=== PATIENT | female | born 1935 | race Two or more races ===

== ENCOUNTER 2018-01-25 02:13 | Inpatient (IN) | payer MEDICARE ==
[~2018-01-25] VITALS: Ht 157.5 cm; Wt 52.3 kg
[2018-01-25 03:30] LABS: CULTURE INDICATED? YES; MICROSCOPIC INDICATED
[2018-01-25] MEDS ORDERED: ONDANSETRON 2MG/ML, 2ML IVPush ONE (03:30)
[2018-01-25] MEDS ORDERED: SODIUM CHLORIDE 0.9% 1,000ML IVBOLUS ONE ×2 (03:30→05:00)
[2018-01-25] MEDS ORDERED: ACETAMINOPHEN 325 MG TABLET PO ONE (03:30)
[2018-01-25] MEDS ORDERED: SODIUM CHLORIDE FLUSH 10ML SYR IVF ONE (03:30)
[2018-01-25 03:32] LABS: BASOPHILS # (AUTO) 0.02 x10^3/uL (0-0.1); BASOPHILS % (AUTO) 0 % (0-1); EOSINOPHILS # (AUTO) 0.24 x10^3/uL (0-0.4); EOSINOPHILS % (AUTO) 2 % (1-7); LYMPHOCYTES % (AUTO) 4 % (22-44); MD NO; MEAN CORPUSCULAR HEMOGLOBIN 30.6 pg (27.0-34.8); MONOCYTES # (AUTO) 0.34 x10^3/uL (0.2-0.8); MONOCYTES % (AUTO) 3 % (2-9); NEUTROPHILS # (AUTO) 9.04 x10^3/uL (1.8-6.8); NEUTROPHILS % (AUTO) 90 % (42-75); PLATELET COUNT 238 x10^3/uL (130-400); RED BLOOD COUNT 4.77 x10^6/uL (3.82-5.3); RED CELL DISTRIBUTION WIDTH 14.9 % (9.6-15.2)
[2018-01-25 03:48] LABS: ALANINE AMINOTRANSFERASE 36 U/L (12-78); ALBUMIN 3.7 g/dL (3.4-5.0); ANION GAP 10 mmol/L (5-15); CALCIUM 9.5 mg/dL (8.5-10.1); CHLORIDE 102 mmol/L (98-107); CREATININE 1.18 mg/dL (0.55-1.02); TROPONIN I < 0.015 ng/mL (0.000-0.045)
[2018-01-25 03:50] LABS: ALKALINE PHOSPHATASE 103 U/L (45-117)
[2018-01-25] MEDS ORDERED: ACETAMINOPHEN 325 MG TABLET ONE (04:02)
[2018-01-25] MEDS ORDERED: ONDANSETRON 2MG/ML, 2ML ONE ×2 (04:02→04:23)
[2018-01-25] MEDS ORDERED: OMNIPAQUE 350 MG/ML, 100ML BOTTLE ONE (04:07)
[2018-01-25] MEDS ORDERED: SODIUM CHLORIDE 0.9% 1,000 ML IV ONE (04:35)
[2018-01-25] MEDS ORDERED: morphine SULFATE 10 MG/ML, 1ML IVPush PRN (05:00)
[2018-01-25] MEDS ORDERED: ENOXAPARIN 40 MG/0.4 ML SQ SCH (05:00)
[2018-01-25] MEDS ORDERED: ONDANSETRON 2MG/ML, 2ML IVPush PRN ×2 (05:00)
[2018-01-25] MEDS ORDERED: ONDANSETRON ODT 4 MG PO PRN (05:00)
[2018-01-25] MEDS: METRONIDAZOLE PMX 500MG/100ML 100 ML IV SCH ×3 (05:00→20:39)
[2018-01-25] MEDS ORDERED: ACETAMINOPHEN 325 MG TABLET PO PRN (05:00)
[2018-01-25] MEDS ORDERED: ATEN50TA41 PO (05:26)
[2018-01-25] MEDS ORDERED: CALC-183 PO (05:26)
[2018-01-25] MEDS ORDERED: VIT1TABL3 PO (05:26)
[2018-01-25] MEDS ORDERED: LOVA40TA2 PO (05:26)
[2018-01-25] MEDS ORDERED: ASPI-496 PO (05:26)
[2018-01-25] MEDS ORDERED: VIT1CAPS11 PO (05:26)
[2018-01-25] MEDS ORDERED: LEVO75TA5 PO (05:26)
[2018-01-25] MEDS ORDERED: ASCO1TAB2 PO (05:26)
[2018-01-25 07:15] VITALS: BP 114/62
[2018-01-25] MEDS ORDERED: FOLIC ACID PO SCH (09:00)
[2018-01-25] MEDS ORDERED: VIT D3 PO SCH (09:00)
[2018-01-25] MEDS ORDERED: B2 PO SCH (09:00)
[2018-01-25] MEDS ORDERED: B12 PO SCH (09:00)
[2018-01-25] MEDS ORDERED: ENOXAPARIN 30 MG/0.3 ML SQ SCH (09:00)
[2018-01-25] MEDS ORDERED: B6 PO SCH (09:00)
[2018-01-25] MEDS: CEFTRIAXONE 1,000 MG in SODIUM CHLORIDE 0.9% 50 ML IV SCH (09:52)
[2018-01-25] MEDS: SODIUM CHLORIDE 0.9% 1,000 ML IV SCH (09:52)
[2018-01-25] MEDS: ASPIRIN 81 MG TABLET CHEW PO SCH (09:53)
[2018-01-25] MEDS: MULTIVITAMINS/MINERALS TABLET PO SCH (09:54)
[2018-01-25] MEDS: ASCORBIC ACID 500 MG TABLET PO SCH (09:54)
[2018-01-25] MEDS: CALCIUM/VITAMIN D3 250-125 TABLET PO SCH (09:54)
[2018-01-25] MEDS: ATENOLOL 50 MG TABLET PO SCH (09:54)
[2018-01-25 12:17] VITALS: BP 122/65
[2018-01-25 18:36] VITALS: BP 125/58
[2018-01-25] MEDS ORDERED: DORZ10DR27 EACHEYE (18:42)
[2018-01-25] MEDS ORDERED: LATA7.5D EACHEYE (18:43)
[2018-01-25 19:15] VITALS: BP 145/72
[2018-01-25 20:01] LABS: CLOSTRIDIUM DIFFICILE ANTIGEN NEGATIVE; CLOSTRIDIUM DIFFICILE TOXIN NEGATIVE (Negative)
[2018-01-25] MEDS: LOVASTATIN 40 MG TABLET PO SCH (20:39)
[2018-01-26 00:47] VITALS: BP 115/58
[2018-01-26] MEDS: SODIUM CHLORIDE 0.9% 1,000 ML IV SCH ×2 (03:55→16:24)
[2018-01-26] MEDS: METRONIDAZOLE PMX 500MG/100ML 100 ML IV SCH ×3 (04:57→20:23)
[2018-01-26 05:28] LABS: BASOPHILS # (AUTO) 0.02 x10^3/uL (0-0.1); BASOPHILS % (AUTO) 0 % (0-1); EOSINOPHILS # (AUTO) 0.35 x10^3/uL (0-0.4); EOSINOPHILS % (AUTO) 4 % (1-7); LYMPHOCYTES # (AUTO) 1.14 x10^3/uL (1-3.4); LYMPHOCYTES % (AUTO) 14 % (22-44); MD NO; MEAN CORPUSCULAR HEMOGLOBIN 30.8 pg (27.0-34.8); MEAN CORPUSCULAR HGB CONC 34.1 g/dL (32.4-35.8); MEAN CORPUSCULAR VOLUME 90.4 fL (80-100); MEAN PLATELET VOLUME 6.5 fL (7.4-10.4); MONOCYTES # (AUTO) 0.62 x10^3/uL (0.2-0.8); MONOCYTES % (AUTO) 7 % (2-9); NEUTROPHILS # (AUTO) 6.16 x10^3/uL (1.8-6.8); NEUTROPHILS % (AUTO) 74 % (42-75); PLATELET COUNT 209 x10^3/uL (130-400); RED BLOOD COUNT 4.15 x10^6/uL (3.82-5.3); RED CELL DISTRIBUTION WIDTH 14.9 % (9.6-15.2)
[2018-01-26] MEDS: LEVOTHYROXINE 75 MCG TABLET PO SCH (05:53)
[2018-01-26 05:58] LABS: CHLORIDE 108 mmol/L (98-107)
[2018-01-26 06:10] LABS: ALANINE AMINOTRANSFERASE 30 U/L (12-78); ALBUMIN 2.7 g/dL (3.4-5.0); ALKALINE PHOSPHATASE 71 U/L (45-117); ANION GAP 11 mmol/L (5-15); BILIRUBIN,TOTAL 0.9 mg/dL (0.2-1.0); CALCIUM 8.4 mg/dL (8.5-10.1); CREATININE 0.95 mg/dL (0.55-1.02)
[2018-01-26] MEDS: ENOXAPARIN 40 MG/0.4 ML SQ SCH (09:00)
[2018-01-26] MEDS: ATENOLOL 50 MG TABLET PO SCH (10:13)
[2018-01-26] MEDS: ASPIRIN 81 MG TABLET CHEW PO SCH (10:21)
[2018-01-26] MEDS: ASCORBIC ACID 500 MG TABLET PO SCH (10:21)
[2018-01-26] MEDS: CALCIUM/VITAMIN D3 250-125 TABLET PO SCH (10:21)
[2018-01-26] MEDS: MULTIVITAMINS/MINERALS TABLET PO SCH (10:21)
[2018-01-26 10:28] VITALS: BP 107/67
[2018-01-26] MEDS: CEFTRIAXONE 1,000 MG in SODIUM CHLORIDE 0.9% 50 ML IV SCH (11:00)
[2018-01-26] MEDS ORDERED: POTASSIUM CHLORIDE 40 MEQ in SODIUM CHLORIDE 0.9% 500 ML IV ONE (13:00)
[2018-01-26 15:37] VITALS: BP 134/67
[2018-01-26 19:35] VITALS: BP 157/70
[2018-01-26] MEDS: LOVASTATIN 40 MG TABLET PO SCH (20:23)
[2018-01-27 01:22] VITALS: BP 153/67
[2018-01-27] MEDS: SODIUM CHLORIDE 0.9% 1,000 ML IV SCH (03:06)
[2018-01-27 04:40] LABS: ALANINE AMINOTRANSFERASE 23 U/L (12-78); ALBUMIN 2.4 g/dL (3.4-5.0); ANION GAP 8 mmol/L (5-15); CALCIUM 7.8 mg/dL (8.5-10.1); CHLORIDE 113 mmol/L (98-107); CREATININE 0.76 mg/dL (0.55-1.02)
[2018-01-27 04:42] LABS: ALKALINE PHOSPHATASE 55 U/L (45-117); BILIRUBIN,TOTAL 0.3 mg/dL (0.2-1.0); TOTAL PROTEIN 5.7 g/dL (6.4-8.2)
[2018-01-27] MEDS: LEVOTHYROXINE 75 MCG TABLET PO SCH (05:18)
[2018-01-27] MEDS: METRONIDAZOLE PMX 500MG/100ML 100 ML IV SCH ×3 (05:18→22:32)
[2018-01-27 07:27] VITALS: BP 129/61
[2018-01-27] MEDS ORDERED: POTASSIUM PHOSPHATE 22 MEQ in SODIUM CHLORIDE 0.9% 500 ML IV ONE (08:00)
[2018-01-27] MEDS: ENOXAPARIN 40 MG/0.4 ML SQ SCH (09:00)
[2018-01-27] MEDS: CEFTRIAXONE 1,000 MG in SODIUM CHLORIDE 0.9% 50 ML IV SCH (11:08)
[2018-01-27] MEDS: MULTIVITAMINS/MINERALS TABLET PO SCH (11:14)
[2018-01-27] MEDS: ASCORBIC ACID 500 MG TABLET PO SCH (11:14)
[2018-01-27] MEDS: CALCIUM/VITAMIN D3 250-125 TABLET PO SCH (11:14)
[2018-01-27] MEDS: ASPIRIN 81 MG TABLET CHEW PO SCH (11:14)
[2018-01-27] MEDS: ATENOLOL 50 MG TABLET PO SCH (11:15)
[2018-01-27] MEDS ORDERED: POTASSIUM CHLORIDE 40 MEQ in SODIUM CHLORIDE 0.9% 500 ML IV ONE ×2 (14:00→18:00)
[2018-01-27] MEDS ORDERED: MAGNESIUM SULFATE PMX 1GM/100ML IV ONE (14:00)
[2018-01-27 14:30] VITALS: BP 124/63
[2018-01-27] MEDS ORDERED: MAGNESIUM SULFATE/D5W 100 ML IV ONE (14:30)
[2018-01-27] MEDS ORDERED: MAGNESIUM SULFATE 1 GM in SODIUM CHLORIDE 0.9% 50 ML IV ONE (15:00)
[2018-01-27 18:34] VITALS: BP 164/75
[2018-01-27] MEDS: LOVASTATIN 40 MG TABLET PO SCH (22:32)
[2018-01-28 01:39] VITALS: BP 131/68
[2018-01-28 05:17] LABS: ANION GAP 6 mmol/L (5-15); CALCIUM 8.2 mg/dL (8.5-10.1); CHLORIDE 113 mmol/L (98-107)
[2018-01-28 05:30] LABS: CREATININE 0.69 mg/dL (0.55-1.02)
[2018-01-28] MEDS: METRONIDAZOLE PMX 500MG/100ML 100 ML IV SCH (05:40)
[2018-01-28] MEDS: SODIUM CHLORIDE 0.9% 1,000 ML IV SCH (05:41)
[2018-01-28] MEDS: LEVOTHYROXINE 75 MCG TABLET PO SCH (05:44)
[2018-01-28 07:06] VITALS: BP 145/78
[2018-01-28] MEDS: ENOXAPARIN 40 MG/0.4 ML SQ SCH (09:00)
[2018-01-28] MEDS: ASPIRIN 81 MG TABLET CHEW PO SCH (10:13)
[2018-01-28] MEDS: ATENOLOL 50 MG TABLET PO SCH (10:14)
[2018-01-28] MEDS: ASCORBIC ACID 500 MG TABLET PO SCH (10:14)
[2018-01-28] MEDS: MULTIVITAMINS/MINERALS TABLET PO SCH (10:14)
[2018-01-28] MEDS: CALCIUM/VITAMIN D3 250-125 TABLET PO SCH (10:14)
[2018-01-28] MEDS ORDERED: CEFD300C37 PO (10:29)
[2018-01-28] MEDS ORDERED: METR500T PO (10:29)
[2018-01-28] MEDS ORDERED: LACT1CAP24 PO (10:30)
== END 2018-01-28 12:51 | disposition home or self-care (01) | DRG 371 ==
LOC: ED 04:52 → EDIP 04:57 → 3NE 06:13
PROVIDERS: ADMIT Hospitalist; ATTEND Internal Medicine
DX: A04.8 Other specified bacterial intestinal infections (principal); N17.0 Acute kidney failure with tubular necrosis; E43 Unspecified severe protein-calorie malnutrition; E87.2 Acidosis; N13.6 Pyonephrosis; Z68.21 Body mass index [BMI] 21.0-21.9, adult; Z88.3 Allergy status to other anti-infective agents; Z88.8 Allergy status to other drugs, medicaments and biological substances; Z90.49 Acquired absence of other specified parts of digestive tract; E03.9 Hypothyroidism, unspecified; E78.5 Hyperlipidemia, unspecified; E83.39 Other disorders of phosphorus metabolism; E86.0 Dehydration; E87.6 Hypokalemia; I10 Essential (primary) hypertension; K57.30 Diverticulosis of large intestine without perforation or abscess without bleeding; Z90.710 Acquired absence of both cervix and uterus
CPT/HCPCS: 36415; 71045; 74177; 80048; 80053; 81001; 83605; 83735; 84100; 84145; 84443; 84484; 85025; 87040; 87086; 87324; 89055; 93005; 96361; 96374; 99285; J0696; J1650; J2405; J3480; Q9967; J7030; J7040

== ENCOUNTER 2020-08-08 08:28 | Emergency (ER) | payer MEDICARE, OTHER ==
[~2020-08-08] VITALS: Ht 152.4 cm; Wt 48.9 kg
[~2020-08-08 08:28] MED LIST: ASCO1TAB2 PO; ASPI-496 PO; ATEN50TA41 PO; CALC-183 PO; CEFD300C37 PO; DORZ10DR27 EACHEYE; LACT1CAP24 PO; LATA7.5D EACHEYE; LEVO75TA5 PO; LOVA40TA2 PO; METR500T PO; VIT1CAPS11 PO; VIT1TABL3 PO
--- NOTE | 2020-08-08 08:41 | NUR ---
PATIENT AMBULATED TO BATHROOM WITH STEADY GAIT AND ASSISTANCE FROM FAMILY MEMBER FOR URINE SAMPLE.
--- NOTE | 2020-08-08 08:47 | NUR ---
ER PROVIDER AT BEDSIDE FOR EVALUATION.
--- NOTE | 2020-08-08 08:51 | NUR ---
PATIENT WALKED BACK FROM TRIAGE WITH CHIEF C/O RIGHT SIDED ABD LUMP. PER DAUGHTER LUMP HAS BEEN THERE "FOR A COUPLE OF YEARS, BUT IT LOOKS BIGGER." PATIENT'S DAUGHTER DENIES N/V/D, PATIENT DENIES PAIN WITH URINATION. LUMP IS ONLY PAINFUL ON PALPATION. HARRIS, BP 192/72, OTHER VSS, DAUGHTER AT BEDSIDE, CALL LIGHT WITHIN REACH.
--- NOTE | 2020-08-08 09:02 | NUR ---
BEDSIDE REPORT GIVEN TO AARTI POWELL FOR TRANSFER OF PATIENT CARE.
--- NOTE | 2020-08-08 09:04 | NUR ---
UA COLLECTED AND SENT TO LAB.
[2020-08-08 09:12] LABS: MICROSCOPIC NOT IND
[2020-08-08 09:33] VITALS: BP 161/69
--- NOTE | 2020-08-08 09:33 | NUR ---
LAB AND US AT BEDSIDE.
[2020-08-08 09:50] LABS: BASOPHILS % (AUTO) 1 % (0-1); EOSINOPHILS % (AUTO) 1 % (1-7); LYMPHOCYTES % (AUTO) 22 % (22-44); MEAN CORPUSCULAR HEMOGLOBIN 31.9 pg (27.0-34.8); MEAN PLATELET VOLUME 6.5 fL (7.4-10.4); MONOCYTES % (AUTO) 10 % (2-9); NEUTROPHILS % (AUTO) 66 % (42-75); PLATELET COUNT 221 x10^3/uL (130-400); RED BLOOD COUNT 4.27 x10^6/uL (3.82-5.3); RED CELL DISTRIBUTION WIDTH 13.8 % (9.6-15.2)
[2020-08-08 09:52] LABS: ALANINE AMINOTRANSFERASE 16 U/L (12-78); ALBUMIN 3.4 g/dL (3.4-5.0); ANION GAP 8 mmol/L (5-15); CHLORIDE 114 mmol/L (98-107); CREATININE 0.72 mg/dL (0.55-1.02)
[2020-08-08 09:53] LABS: MD NO
[2020-08-08 09:55] LABS: ALKALINE PHOSPHATASE 80 U/L (45-117); BILIRUBIN,TOTAL 0.8 mg/dL (0.2-1.0); TOTAL PROTEIN 6.5 g/dL (6.4-8.2)
== END 2020-08-08 10:33 | disposition home or self-care (01) ==
LOC: ED 09:12
DX: R19.01 Right upper quadrant abdominal swelling, mass and lump (principal); I10 Essential (primary) hypertension; L98.9 Disorder of the skin and subcutaneous tissue, unspecified; E78.00 Pure hypercholesterolemia, unspecified; E03.9 Hypothyroidism, unspecified
CPT/HCPCS: 36415; 76705; 80053; 81003; 83690; 85025; 93005; 99285